=== PATIENT | female | born 1975 | race African-American/Black ===

== ENCOUNTER 2018-09-26 18:37 | Emergency (ER) | payer SELFPAY ==
[~2018-09-26] VITALS: Ht 170.2 cm; Wt 73.0 kg
[2018-09-26] MEDS ORDERED: IBUPROFEN 600MG TABLET PO ONE (20:45)
[2018-09-26] MEDS ORDERED: CYCLOBENZAPRINE 10MG TABLET PO ONE (20:45)
[2018-09-26 23:01] VITALS: BP 134/80
== END 2018-09-26 23:02 | disposition home or self-care (01) ==
LOC: ER 18:37
DX: S13.4XXA Sprain of ligaments of cervical spine, initial encounter (principal); S63.501A Unspecified sprain of right wrist, initial encounter; S63.502A Unspecified sprain of left wrist, initial encounter; M25.552 Pain in left hip; M25.551 Pain in right hip; Z90.710 Acquired absence of both cervix and uterus; Z98.890 Other specified postprocedural states; V49.88XA Car occupant (driver) (passenger) injured in other specified transport accidents, initial encounter; Y93.89 Activity, other specified; Y92.89 Other specified places as the place of occurrence of the external cause; Y99.8 Other external cause status
CPT/HCPCS: 73110; 99283